=== PATIENT | male | born 1990 | race African-American/Black ===

== ENCOUNTER 2017-10-07 20:04 | Emergency (ER) | payer OTHER ==
[~2017-10-07] VITALS: Ht 180.3 cm; Wt 63.0 kg
[2017-10-08] MEDS ORDERED: KETOROLAC 30MG/ML VIAL IM ONE (02:15)
[2017-10-08 03:03] VITALS: BP 105/68
== END 2017-10-08 03:07 | disposition home or self-care (01) ==
LOC: ER 10-08 00:41
DX: R51 Headache (principal)
CPT/HCPCS: 96372; 99283; J1885; Z7610